=== PATIENT | female | born 1990 | race Caucasian/White ===

== ENCOUNTER 2022-03-11 10:16 | Emergency (ER) | payer BC ==
[~2022-03-11] VITALS: Ht 160 cm; Wt 47.3 kg
[2022-03-11 10:30] VITALS: BP 140/102
--- NOTE | 2022-03-11 11:00 | NUR ---
C/O 610 LEFT CHEST PAIN, MEDINA X 6DAYS.PMH: ANXIETY. DENIES N/V/D; SKIN IS PINK/WARM/DRY; AAOX4 WITH EVEN AND STEADY GAIT; LUNGS CLEAR BL; HR EVEN AND REGULAR; PT DENIES ANY FEVER,SOB, OR COUGH AT THIS TIME.
[2022-03-11 13:45] VITALS: BP 140/102
--- NOTE | 2022-03-11 13:46 | NUR ---
Patient discharged with v/s stable. Written and verbal after care instructions given and explained. Patient verbalized understanding. Ambulatory with steady gait. All questions addressed prior to discharge. Advised to follow up with PMD.
== END 2022-03-11 13:45 | disposition home or self-care (01) ==
LOC: MED 10:16
DX: R07.9 Chest pain, unspecified (principal)
CPT/HCPCS: 71045; 81002; 81025; 93005; 99283